=== PATIENT | female | born 1950 | race African-American/Black ===

== ENCOUNTER 2016-06-02 11:33 | Emergency (ER) | payer MEDICAID, MEDICARE | END 2016-06-02 12:00 | disposition home or self-care (01) | LOC: BURERS 11:33 | DX: K02.9 Dental caries, unspecified (principal); E78.5 Hyperlipidemia, unspecified; I10 Essential (primary) hypertension; Z87.891 Personal history of nicotine dependence; Z79.899 Other long term (current) drug therapy | CPT/HCPCS: 99282 ==

== ENCOUNTER 2018-01-31 10:34 | Emergency (ER) | payer MEDICARE, MEDICAID ==
[2018-01-31 11:30] LABS: #Lymphocytes 1.1 thou/uL (1.20-3.40); #Monocytes 0.2 thou/uL (0.11-0.59); #Neutrophils 2.1 thou/uL (1.40-6.50); %Basophils 1.2 % (0.0-1.0); %Eosinophils 1.2 % (0.0-10.0); %Lymphocytes 30.9 % (21.0-51.0); %Monocytes 5.8 % (0.0-10.0); %Neutrophils 60.9 % (42.0-75.0); Hemoglobin 12.2 g/dL (12.0-16.0); Mean Corpuscular HGB CONC 34.3 g/dL (32.0-36.0); Mean Corpuscular Hemoglobin 29.8 pg (27.0-31.0); Mean Corpuscular Volume 86.9 fL (78.0-98.0); Mean Platelet Volume 7.4 fL (7.4-10.4); Platelet Count 178 thou/uL (130-400); RBC Distribution Width 12.5 % (11.5-14.5); Red Blood Cell (RBC) Count 4.09 mill/uL (4.20-5.40); White Blood Cell (WBC) Count 3.5 thou/uL (4.8-10.8)
[2018-01-31 11:49] LABS: ALT (SGPT) 14 U/L (8-55); AST (SGOT) 14 U/L (5-34); Albumin 3.7 g/dL (3.4-4.8); Alkaline Phosphatase 52 U/L (40-150); Anion Gap 9 mmol/L (10-20); BUN (Urea Nitrogen) 12 mg/dL (9.8-20.1); Bilirubin, Total 0.6 mg/dL (0.2-1.2); CK (CPK) 123 U/L (29-168); Calc. Creatinine Clearance 0 mL/min (70-130); Calcium 8.8 mg/dL (7.8-10.44); Carbon Dioxide 27 mmol/L (23-31); Chloride 108 mmol/L (98-107); Estimated GFR-MDRD 70; Globulin 3.2 g/dL (2.4-3.5); Glucose 102 mg/dL (80-115); Lipase 52 U/L (8-78); Magnesium 2.4 mg/dL (1.6-2.6); Potassium 3.7 mmol/L (3.5-5.1); Protein, Total 6.9 g/dL (6.0-8.3); Sodium 140 mmol/L (136-145)
[2018-01-31 11:50] LABS: CKMB 0.8 ng/mL (0-6.6); Troponin I 0.012 ng/mL (< 0.028)
--- NOTE | 2018-01-31 20:46 | RAD ---
CHEST TWO VIEWS: 01/31/18 The heart is normal in size. The lungs are slightly hyperexpanded but clear. No infiltrate, effusion, or other acute pulmonary changes were seen. The mediastinum appears normal. There were no acute bony changes. IMPRESSION: No acute finding. POS: HOME
--- NOTE | 2018-01-31 21:13 | RAD ---
THORACIC SPINE THREE VIEWS: 01/31/18 There is some minor curvature of the thoracic spine convexed left which could be positional. No fract ure, dislocation, or disc space narrowing was seen. Some tiny anterior osteophytes are seen at many o f the mid thoracic levels. The paravertebral soft tissues were unremarkable. IMPRESSION: Very minor degenerative changes but no acute findings. POS: HOME
--- NOTE | 2018-01-31 21:15 | RAD ---
LUMBAR SPINE THREE VIEWS: 01/31/18 No fracture was seen. There is very minor anterolisthesis of L4 on L5 that appears to be due to signi ficant fact arthritis at this level. The SI joints were symmetrical. There were no other acute bony f indings of concern. IMPRESSION: Degenerative changes, particularly in the facet joints of the lower lumbar spine. L4-L5 in particular is affected. POS: HOME
== END 2018-01-31 14:03 | disposition short-term general hospital (02) ==
LOC: BURERS 10:34
DX: R07.89 Other chest pain (principal); R00.1 Bradycardia, unspecified; I10 Essential (primary) hypertension; E78.5 Hyperlipidemia, unspecified; E03.9 Hypothyroidism, unspecified; F17.210 Nicotine dependence, cigarettes, uncomplicated; Z79.899 Other long term (current) drug therapy
CPT/HCPCS: 71046; 72072; 72100; 80053; 82553; 83690; 83735; 84443; 84484; 85025; 93005

== ENCOUNTER 2018-09-02 11:47 | Emergency (ER) | payer MEDICARE, MEDICAID | END 2018-09-02 12:17 | disposition home or self-care (01) | LOC: BURERS 11:47 | DX: M79.641 Pain in right hand (principal); M79.642 Pain in left hand; T42.6X5A Adverse effect of other antiepileptic and sedative-hypnotic drugs, initial encounter; I10 Essential (primary) hypertension; E78.5 Hyperlipidemia, unspecified; E03.9 Hypothyroidism, unspecified; F17.210 Nicotine dependence, cigarettes, uncomplicated; Z79.899 Other long term (current) drug therapy | CPT/HCPCS: 99283 ==